=== PATIENT | female | born 1945 | race Caucasian/White ===

== ENCOUNTER 2022-11-21 11:09 | Outpatient (OUT) | payer MEDICARE, OTHER, SELFPAY ==
--- NOTE | 2022-11-21 11:28 | ECG_ITS ---
[facility] Test Date: 2022-11-21 Pat Name: Palak Wu Department: Room: - Gender: Female [employer]: : 1945 Requested By: Darrell Barber Order Number: [id number] Reading MD: VEGA WELCH Measurements Intervals [place] Rate: 58 P: 18 AK: 190 QRS: -35 QRSD: 103 T: 7 QT: 484 QTc: 476 Interpretive Statements SINUS BRADYCARDIA WITH SINUS ARRHYTHMIA MARKED LEFT AXIS DEVIATION [QRS AXIS < -30] PATTERN CONSISTENT WITH PULMONARY DISEASE MODERATE VOLTAGE CRITERIA FOR LVH, CONSIDER NORMAL VARIANT [MEETS CRITERIA IN ONE OF: R(aVL), S(V1), R(V5), R(V5/V6)+S(V1)] PROLONGED QT INTERVAL No previous ECG available for comparison Electronically Signed On 11-22-2022 6:51:39 EDT by VEGA WELCH
[2022-11-21 12:27] LABS: Calcium 9.6 mg/dL (8.5-10.1); Carbon Dioxide 27.7 mmol/L (21.0-32.0); Chloride 103 mmol/L (98-107); Estimated GFR (African America >60 (>=60); Estimated GFR (Non-African Ame >60 (>=60); Glucose 131 mg/dL (74-106); Potassium 4.7 mmol/L (3.5-5.1); Sodium 139 mmol/L (136-145)
== END 2022-11-21 11:10 ==
LOC: PST 11:12
PROVIDERS: Internal Medicine; PCP Internal Medicine
DX: Z01.810 Encounter for preprocedural cardiovascular examination (principal); Z01.812 Encounter for preprocedural laboratory examination; J84.9 Interstitial pulmonary disease, unspecified
CPT/HCPCS: 36415; 80048; 93005